=== PATIENT | female | born 1995 | race African-American/Black ===

== ENCOUNTER 2018-01-22 02:03 | Emergency (ER) | payer OTHER ==
[~2018-01-22] VITALS: Ht 167.6 cm; Wt 101.0 kg
[2018-01-22] MEDS ORDERED: ACETAMINOPHEN 325 MG TABLET PO ONE (02:30)
[2018-01-22] MEDS ORDERED: DEXAMETHASONE 4 MG TABLET ONE (02:38)
[2018-01-22] MEDS ORDERED: DEXAMETHASONE 4 MG TABLET PO ONE (03:00)
[2018-01-22 04:08] VITALS: BP 126/74
[2018-01-23] MEDS ORDERED: AMOX-291 PO (23:59)
== END 2018-01-22 04:10 | disposition home or self-care (01) ==
LOC: ED 03:43
DX: J02.0 Streptococcal pharyngitis (principal); R50.9 Fever, unspecified
CPT/HCPCS: 87081; 87147; 87880; 99284

== ENCOUNTER 2018-01-23 23:52 | Emergency (ER) | payer OTHER ==
[~2018-01-23] VITALS: Ht 172.7 cm; Wt 101.0 kg
[2018-01-23] MEDS ORDERED: AMOX-291 PO (23:59)
[2018-01-24 01:14] VITALS: BP 119/78
== END 2018-01-24 01:17 | disposition home or self-care (01) ==
LOC: ED 23:59
DX: J02.9 Acute pharyngitis, unspecified (principal); J00 Acute nasopharyngitis [common cold]
CPT/HCPCS: 71046; 99284

== ENCOUNTER 2018-06-02 19:19 | Emergency (ER) | payer MEDICAID, OTHER ==
[~2018-06-02] VITALS: Ht 165.1 cm; Wt 99.4 kg
[~2018-06-02 19:19] MED LIST: AMOX-291 PO
[2018-06-02] MEDS ORDERED: ONDANSETRON ODT 4 MG ONE ×2 (19:42→21:43)
[2018-06-02] MEDS ORDERED: ONDANSETRON ODT 4 MG PO ONE (20:00)
[2018-06-02] MEDS ORDERED: SODIUM CHLORIDE FLUSH 10ML SYR IVF ONE (20:00)
[2018-06-02] MEDS ORDERED: SODIUM CHLORIDE 0.9% 1,000ML IVBOLUS ONE (20:00)
[2018-06-02 20:13] LABS: BASOPHILS % (AUTO) 0 % (0-1); EOSINOPHILS # (AUTO) 0.06 x10^3/uL (0-0.8); EOSINOPHILS % (AUTO) 1 % (1-7); LYMPHOCYTES # (AUTO) 0.37 x10^3/uL (1-6.1); LYMPHOCYTES % (AUTO) 3 % (22-44); MD NO; MEAN CORPUSCULAR HEMOGLOBIN 23.9 pg (27.0-34.8); MEAN CORPUSCULAR HGB CONC 32.6 g/dL (32.4-35.8); MEAN CORPUSCULAR VOLUME 73.3 fL (80-100); MONOCYTES # (AUTO) 0.44 x10^3/uL (0-1.4); MONOCYTES % (AUTO) 4 % (2-9); NEUTROPHILS # (AUTO) 10.45 x10^3/uL (1.8-8.0); NEUTROPHILS % (AUTO) 92 % (42-75); PLATELET COUNT 429 x10^3/uL (130-400); RED BLOOD COUNT 5.91 x10^6/uL (3.82-5.3); RED CELL DISTRIBUTION WIDTH 16.6 % (9.6-15.2)
[2018-06-02 20:20] LABS: ALANINE AMINOTRANSFERASE 33 U/L (12-78); ANION GAP 6 mmol/L (5-15); CALCIUM 8.6 mg/dL (8.5-10.1); CHLORIDE 109 mmol/L (98-107); CREATININE 0.84 mg/dL (0.55-1.02)
[2018-06-02 20:25] LABS: ALKALINE PHOSPHATASE 84 U/L (45-117); BILIRUBIN,TOTAL 0.4 mg/dL (0.2-1.0); TOTAL PROTEIN 9.1 g/dL (6.4-8.2)
[2018-06-02 22:01] LABS: CULTURE INDICATED? NO; MICROSCOPIC NOT IND
[2018-06-02] MEDS ORDERED: ETON68IM3 IMPLANT (22:06)
[2018-06-02] MEDS ORDERED: PROMETHAZINE 25MG TABLET ONE (22:18)
[2018-06-02] MEDS ORDERED: ACETAMINOPHEN 325 MG TABLET ONE (22:28)
[2018-06-02] MEDS ORDERED: PROMETHAZINE 25MG TABLET PO PRN (22:30)
[2018-06-02] MEDS ORDERED: ACETAMINOPHEN 325 MG TABLET PO ONE (22:30)
[2018-06-02 22:58] VITALS: BP 138/81
== END 2018-06-02 23:32 | disposition home or self-care (01) ==
LOC: ED 23:23
DX: A09 Infectious gastroenteritis and colitis, unspecified (principal)
CPT/HCPCS: 36415; 80053; 81003; 83690; 84703; 85025; 96360; 99284; J7030; Q0162; Q0169

== ENCOUNTER 2018-09-03 17:15 | Observation (INO) | payer MEDICAID, OTHER ==
[~2018-09-03] VITALS: Ht 165.1 cm; Wt 95.5 kg
[~2018-09-03 17:15] MED LIST changes: +ETON68IM3 IMPLANT
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
[2018-09-03] MEDS ORDERED: PROP10TA16 PO (17:43)
--- NOTE | 2018-09-03 17:43 | NUR ---
PER PT "I ALSO HAVE A RX FOR SERTRALINE 50 MG. BUT I HAVEN'T FILLED IT YET. I DON'T HAVE THE MONEY."
--- NOTE | 2018-09-03 17:44 | NUR ---
PT AWARE OF UA NEEDED.
[2018-09-03 18:06] LABS: BASOPHILS # (AUTO) 0.06 x10^3/uL (0-0.1); BASOPHILS % (AUTO) 1 % (0-1); EOSINOPHILS # (AUTO) 0.04 x10^3/uL (0-0.4); EOSINOPHILS % (AUTO) 1 % (1-7); LYMPHOCYTES # (AUTO) 2.94 x10^3/uL (1-3.4); LYMPHOCYTES % (AUTO) 54 % (22-44); MD NO; MEAN CORPUSCULAR HEMOGLOBIN 24.4 pg (27.0-34.8); MEAN CORPUSCULAR HGB CONC 32.6 g/dL (32.4-35.8); MONOCYTES # (AUTO) 0.34 x10^3/uL (0.2-0.8); MONOCYTES % (AUTO) 6 % (2-9); NEUTROPHILS # (AUTO) 2.05 x10^3/uL (1.8-6.8); NEUTROPHILS % (AUTO) 38 % (42-75); PLATELET COUNT 415 x10^3/uL (130-400); RED BLOOD COUNT 5.89 x10^6/uL (3.82-5.3); RED CELL DISTRIBUTION WIDTH 17.2 % (9.6-15.2)
[2018-09-03 18:19] LABS: ALANINE AMINOTRANSFERASE 26 U/L (12-78); ALBUMIN 4.3 g/dL (3.4-5.0); ANION GAP 9 mmol/L (5-15); CALCIUM 9.3 mg/dL (8.5-10.1); CHLORIDE 109 mmol/L (98-107); SALICYLATE LEVEL < 1.7 mg/dL (2.8-20.0)
[2018-09-03 18:24] LABS: ACETAMINOPHEN < 2 mcg/mL (10-30); ALKALINE PHOSPHATASE 86 U/L (45-117); BILIRUBIN,TOTAL 0.6 mg/dL (0.2-1.0); CREATININE 0.72 mg/dL (0.55-1.02); TOTAL PROTEIN 8.8 g/dL (6.4-8.2)
--- NOTE | 2018-09-03 18:56 | NUR ---
BEDSIDE REPORT TO JAMEE TAFOYA. PT HAS BEEN ON OXYGEN PROTOCOL. ABLE TO D/C AT 1920. PT AWARE OF UA NEEDED.
--- NOTE | 2018-09-03 19:55 | NUR ---
LATE ENTRY 1920- PT RESTING ON GURNEY, DENIES NEEDS OR PAIN, ROOM SECURED, SITTER AT DOORWAY FOR CONTINOUS MONITORING.
--- NOTE | 2018-09-03 20:02 | NUR ---
PT UP TO RR WITH STANDBY ASSIST, STEADY GAIT NOTED, URINE SAMPLE TAKEN TO LAB
[2018-09-03 20:28] LABS: AMPHETAMINE SCREEN, URINE Negative (Negative); BARBITURATE SCREEN, URINE Negative (Negative); BENZODIAZEPINE SCREEN, URINE Negative (Negative); CANNABINOID SCREEN, URINE Positive (Negative); COCAINE SCREEN, URINE Negative (Negative); METHADONE SCREEN, URINE Negative (Negative); OPIATE SCREEN, URINE Negative (Negative)
[2018-09-03] MEDS ORDERED: ONDANSETRON ODT 4 MG ONE (20:55)
--- NOTE | 2018-09-03 20:59 | NUR ---
PT SITTING UP ON GURNEY, MEDICATED FOR NAUSEA , ROOM REMAINS SECURED, SITTER AT DOORWAY FOR CONTINOUS MONITORING
[2018-09-03] MEDS ORDERED: ONDANSETRON ODT 4 MG PO ONE (21:00)
--- NOTE | 2018-09-03 21:22 | NUR ---
JOSEE RN: PACKET FAXED TO [facility] PT IS SELF PAY
--- NOTE | 2018-09-03 22:14 | NUR ---
PT RESTING WITH EYES CLOSED, NADN, EQUAL CHEST RISE/FALL OBSERVED, SITTER AT DOORWAY FOR CONTINOUS MONITORING
--- NOTE | 2018-09-03 23:00 | NUR ---
PT REQUESTING TO GO FOR WALK, PT AMBULATING IN HALLWAY WITH SITTER AT HER SIDE, STEADY GAIT NOTED, NAD
--- NOTE | 2018-09-04 00:07 | NUR ---
pt sitting up on gurney, denies pain or needs, romy, sitter at doorway for continous monitoring. provided pt with pillow and warm blanket, called for hospital bed.
[2018-09-04] MEDS ORDERED: ACETAMINOPHEN 325 MG TABLET PO PRN (01:00)
[2018-09-04] MEDS ORDERED: DOCUSATE 100 MG CAPSULE PO PRN (01:00)
[2018-09-04] MEDS ORDERED: ONDANSETRON ODT 4 MG PO PRN (01:00)
[2018-09-04] MEDS ORDERED: LORazepam 1MG TABLET PO PRN (01:00)
--- NOTE | 2018-09-04 01:55 | NUR ---
HAIR OR BEAUTY SALON MANAGER: HOSPITAL BED ORDERED FROM [facility]
--- NOTE | 2018-09-04 01:58 | NUR ---
late entry 0100-pt resting calmly on gurney watching tv,nadn, sitter at doorway for continous monitoring. 2nd call placed for hospital bed.
--- NOTE | 2018-09-04 02:04 | NUR ---
switched [place] for hospital bed, pt resting calmly requesting medication for insomnia,will updated erp. sitter remains at doorway for continous monitoring.
[2018-09-04] MEDS ORDERED: TRAZODONE 50MG TABLET ONE (02:11)
[2018-09-04] MEDS: TRAZODONE 50MG TABLET PO PRN ×2 (02:15→22:43)
--- NOTE | 2018-09-04 02:16 | NUR ---
pt medicated per prn mar order.
--- NOTE | 2018-09-04 03:01 | NUR ---
PT RESTING WITH EYES CLOSED, NADN, EQUAL CHEST RISE/FALL OBSERVED, SITTER REMAINS AT DOORWAY FOR CONTINOUS MONITORING
[2018-09-04] MEDS ORDERED: SERT50TA28 PO (03:29)
--- NOTE | 2018-09-04 04:37 | NUR ---
PT RESTING WITH EYES CLOSED, EQUAL CHEST RISE/FALL OBSERVED, NADN, ROOM REMAINS SECURED, SITTER AT DOORWAY FOR CONTINOUS MONITORING
--- NOTE | 2018-09-04 05:29 | NUR ---
PT RESTING CALMLY, NOTED PT REPOSITIONED SELF IN BED, NADN, EQUAL CHEST RISE/FALL OBSERVED, SITTER AT DOORWAY FOR CONTINOUS MONITORING.
--- NOTE | 2018-09-04 06:30 | NUR ---
PT RESTING WITH EYES CLOSED, NADN, EQUAL CHEST RISE/FALL OBSERVED, SITTER REMAINS AT DOORWAY FOR CONTINOUS MONITORING
--- NOTE | 2018-09-04 06:56 | NUR ---
REPORT GIVEN TO JAMEE LARSEN
--- NOTE | 2018-09-04 07:04 | NUR ---
REC BS REPORT PT RESTING NADN SITTER IN THE [place]RIST[place] EYES ON THE PT
[2018-09-04] MEDS: PROPRANOLOL 10 MG TABLET PO SCH (09:14)
[2018-09-04] MEDS: SERTRALINE 50MG TABLET PO SCH (09:14)
--- NOTE | 2018-09-04 11:32 | NUR ---
LELE TO GET PT TO 2 N
[2018-09-04] MEDS ORDERED: ACETAMINOPHEN 325 MG TABLET ONE (12:27)
--- NOTE | 2018-09-04 12:45 | NUR ---
MEAL GIVEN AND UP TO PHONE AND FOR A WALK
--- NOTE | 2018-09-04 14:39 | NUR ---
report called to the floor
[2018-09-04 14:49] VITALS: BP 126/80
[2018-09-04 19:49] VITALS: BP 126/77
[2018-09-05 08:41] VITALS: BP 154/98
[2018-09-05] MEDS: SERTRALINE 50MG TABLET PO SCH (08:48)
[2018-09-05] MEDS: PROPRANOLOL 10 MG TABLET PO SCH (08:48)
[2018-09-05 19:37] VITALS: BP 135/94
[2018-09-05] MEDS: TRAZODONE 50MG TABLET PO PRN (21:56)
[2018-09-06] MEDS: SERTRALINE 50MG TABLET PO SCH (08:22)
[2018-09-06] MEDS: PROPRANOLOL 10 MG TABLET PO SCH (08:26)
[2018-09-06 08:28] VITALS: BP 143/90
[2018-09-06 19:46] VITALS: BP 140/89
[2018-09-06] MEDS: TRAZODONE 50MG TABLET PO PRN (21:59)
[2018-09-07 07:48] VITALS: BP 131/83
[2018-09-07] MEDS: SERTRALINE 50MG TABLET PO SCH (09:00)
[2018-09-07] MEDS: PROPRANOLOL 10 MG TABLET PO SCH (09:00)
[2018-09-07 19:00] VITALS: BP 117/86
[2018-09-07] MEDS: TRAZODONE 50MG TABLET PO PRN (22:02)
[2018-09-08 07:52] VITALS: BP 122/80
[2018-09-08] MEDS: SERTRALINE 50MG TABLET PO SCH (08:28)
[2018-09-08] MEDS: PROPRANOLOL 10 MG TABLET PO SCH (08:28)
[2018-09-08 19:51] VITALS: BP 146/86
[2018-09-08] MEDS: TRAZODONE 50MG TABLET PO PRN (21:58)
[2018-09-09 07:53] VITALS: BP 132/76
[2018-09-09] MEDS: SERTRALINE 50MG TABLET PO SCH (08:14)
[2018-09-09] MEDS: PROPRANOLOL 10 MG TABLET PO SCH (08:15)
[2018-09-09] MEDS ORDERED: PROP10TA16 PO (14:10)
[2018-09-09] MEDS ORDERED: SERT50TA28 PO (14:10)
== END 2018-09-09 14:30 | disposition home or self-care (01) ==
LOC: ED 19:23 → EDIP 20:59 → 2N 09-04 14:46
PROVIDERS: ADMIT Hospitalist; ATTEND Hospitalist
DX: R45.851 Suicidal ideations (principal); F12.90 Cannabis use, unspecified, uncomplicated; F31.30 Bipolar disorder, current episode depressed, mild or moderate severity, unspecified; F41.1 Generalized anxiety disorder; F43.10 Post-traumatic stress disorder, unspecified; F60.3 Borderline personality disorder; Z82.49 Family history of ischemic heart disease and other diseases of the circulatory system
CPT/HCPCS: 36415; 80053; 80307; 80329; 82375; 84703; 85025; 99284; G0378; Q0162; G0480

== ENCOUNTER 2019-03-29 15:34 | Emergency (ER) | payer MEDICAID, OTHER ==
[~2019-03-29] VITALS: Ht 165.1 cm; Wt 96.3 kg
[2019-03-29 15:36] VITALS: BP 151/82
== END 2019-03-29 19:56 | disposition home or self-care (01) ==
LOC: ED 18:12
DX: S61.253A Open bite of left middle finger without damage to nail, initial encounter (principal); L03.012 Cellulitis of left finger; F41.1 Generalized anxiety disorder; F32.9 Major depressive disorder, single episode, unspecified; W54.0XXA Bitten by dog, initial encounter; Y93.89 Activity, other specified; Y92.009 Unspecified place in unspecified non-institutional (private) residence as the place of occurrence of the external cause; Y99.8 Other external cause status
CPT/HCPCS: 99283